=== PATIENT | female | born 1970 | race Caucasian/White ===

== ENCOUNTER 2024-02-03 13:55 | Emergency (ER) | payer BC ==
[~2024-02-03 13:55] MED LIST: Iopamidol 370 76% 100 ML VIAL ONE; Sodium Chloride 0.9% 100 ML BAG ONE
[2024-02-03 14:25] LABS: #Basophils 0.1 thou/uL (0.0-0.2); #Lymphocytes 1.4 thou/uL (1.20-3.40); #Monocytes 0.6 thou/uL (0.11-0.59); #Neutrophils 3.8 thou/uL (1.40-6.50); %Basophils 1.5 % (0.0-1.0); %Eosinophils 0.7 % (0.0-10.0); %Lymphocytes 23.3 % (21.0-51.0); %Monocytes 10.4 % (0.0-10.0); %Neutrophils 64.2 % (42.0-75.0); Hematocrit 43.3 % (36.0-47.0); Hemoglobin 13.5 g/dL (12.0-16.0); Mean Corpuscular HGB CONC 31.2 g/dL (32.0-36.0); Mean Corpuscular Hemoglobin 29.6 pg (27.0-31.0); Mean Platelet Volume 9.3 fL (7.4-10.4); Platelet Count 204 10x3/uL (130-400); RBC Distribution Width 11.8 % (11.5-14.5); Red Blood Cell (RBC) Count 4.56 mill/uL (4.20-5.40); White Blood Cell (WBC) Count 5.9 10x3/uL (4.8-10.8)
[2024-02-03] MEDS ORDERED: Lactated Ringer's 1,000 ML ONE (14:31)
[2024-02-03] MEDS ORDERED: Aspirin Chewable 81 MG TAB ONE (14:31)
[2024-02-03 14:43] LABS: Troponin I Less than 0.010 ng/mL (< 0.028)
[2024-02-03 14:44] LABS: ALT (SGPT) 24 U/L (8-55); AST (SGOT) 30 U/L (5-34); Albumin 4.6 g/dL (3.5-5.0); Alkaline Phosphatase 122 U/L (40-110); Anion Gap 17 mmol/L (10-20); BUN (Urea Nitrogen) 8 mg/dL (9.8-20.1); Bilirubin, Total 0.6 mg/dL (0.2-1.2); Calc. Creatinine Clearance 0 mL/min (70-130); Carbon Dioxide 22 mmol/L (22-29); Chloride 105 mmol/L (98-107); Estimated GFR 97; Globulin 2.2 g/dL (2.4-3.5); Glucose 108 mg/dL (70-105); Lipase 30 U/L (8-78); Magnesium 1.8 mg/dL (1.6-2.6); Potassium 3.6 mmol/L (3.5-5.1); Protein, Total 6.8 g/dL (6.0-8.3); Sodium 140 mmol/L (136-145)
[2024-02-03 17:27] LABS: Troponin I Less than 0.010 ng/mL (< 0.028)
== END 2024-02-03 17:43 | disposition home or self-care (01) ==
LOC: MADERS 13:55
DX: R55 Syncope and collapse (principal)
CPT/HCPCS: 36415; 71275; 80053; 83690; 83735; 83880; 84443; 84484; 85025; 93005; 94760; J3490; J7120; Q9967